=== PATIENT | female | born 2005 | race Hispanic/Latino ===

== ENCOUNTER 2023-09-12 14:20 | Inpatient (IN) | payer OTHER ==
[2023-09-15 20:02] VITALS: BMI 32.8
[2023-09-15] MEDS ORDERED: fentaNYL 50 mcg/mL 1 mL Vial SLOW IVP PRN (20:33)
[2023-09-15] MEDS ORDERED: Lidocaine 1% (PF) 30 ML VIAL SC PRN (20:33)
[2023-09-15] MEDS ORDERED: Carboprost 250 MCG/ML AMP IM PRN (20:33)
[2023-09-15] MEDS ORDERED: Tranexamic Acid 1,000 MG/10 ML VIAL IVP PRN (20:33)
[2023-09-15] MEDS ORDERED: Acetaminophen 500 MG TAB PO PRN (20:33)
[2023-09-15] MEDS ORDERED: Promethazine HCl 25 MG/ML VIAL IM PRN (20:33)
[2023-09-15] MEDS ORDERED: Ondansetron PF 4 MG/2 ML Vial IVP PRN (20:33)
[2023-09-15] MEDS ORDERED: Methylergonovine 0.2 MG/ML VIAL IM PRN (20:33)
[2023-09-15] MEDS ORDERED: hydrALAZINE 20 MG/ML VIAL SLOW IVP PRN (20:33)
[2023-09-15] MEDS ORDERED: Misoprostol 200 MCG TAB PR PRN (20:33)
[2023-09-15] MEDS ORDERED: Diphenoxylate HCl/Atropine Tablet PO PRN (20:33)
[2023-09-15] MEDS ORDERED: HYDROcodone/Acetaminophen 5/325 mg Tablet PO PRN (20:36)
[2023-09-15] MEDS ORDERED: Ibuprofen 800 MG TAB PO PRN (20:36)
[2023-09-15] MEDS ORDERED: Oxytocin 30 units/NS 500 ML 500 ML IV SCH ×3 (20:45)
[2023-09-15] MEDS: Misoprostol 100 MCG TAB PO SCH (21:08)
[2023-09-15 21:18] LABS: Hematocrit 31.2 % (34.9-44.5); Hemoglobin 10.4 g/dL (12.0-15.5); Mean Corpuscular HGB CONC 33.3 g/dL (32.0-36.0); Mean Corpuscular Hemoglobin 25.6 pg (27.0-33.0); Mean Corpuscular Volume 76.7 fl (81.6-98.3); Mean Platelet Volume 10.6 fl (7.4-10.4); Platelet Count 238 10x3/uL (150-450); RBC Distribution Width 14.3 % (11.5-14.5); Red Blood Cell (RBC) Count 4.07 10x6/uL (3.90-5.03); White Blood Cell (WBC) Count 7.7 10x3/uL (3.5-10.5)
[2023-09-15 23:05] LABS: HBSAg Index 0.17 S/CO (0-0.99); Hep B Surf Ag - L&D Non-Reactive S/CO (NonReactive); Syphilis Antibody Nonreactive (Nonreactive); Syphilis Antibody Index 0.04 S/CO (<1.00 Non-Reactive)
[2023-09-16] MEDS: Misoprostol 100 MCG TAB PO SCH ×4 (01:23→20:23)
[2023-09-16] MEDS ORDERED: Penicillin G Potassium 5 MILL.UNITS in Sodium Chloride 0.9% 100 ML IVPB SCH (02:00)
[2023-09-16] MEDS: Lactated Ringer's 1,000 ML IV SCH ×2 (02:27→20:21)
[2023-09-16] MEDS: Penicillin G 2.5 MILL.units 2.5 MILL.UNITS in Premix 1 BAG IVPB SCH ×3 (06:04→20:21)
[2023-09-16] MEDS ORDERED: ePHEDrine Sulfate 50 MG/10 ML VIAL SLOW IVP PRN (12:37)
[2023-09-16] MEDS ORDERED: Lactated Ringer's 500 ML IV PRN (12:37)
[2023-09-16] MEDS ORDERED: diphenhydrAMINE 50 MG/ML VIAL IVP PRN (12:37)
[2023-09-16] MEDS ORDERED: Naloxone HCl 0.4 mg/ml Vial IVP PRN ×2 (12:37)
[2023-09-16] MEDS ORDERED: Promethazine HCl 25 MG/ML VIAL IM PRN (12:37)
[2023-09-16] MEDS ORDERED: Moisturizing Cream (Eucerin) 113 GM JAR TOP PRN (12:37)
[2023-09-16] MEDS ORDERED: Acetaminophen 325 MG TAB PO PRN (12:37)
[2023-09-16] MEDS ORDERED: Ondansetron PF 4 MG/2 ML Vial IVP PRN ×2 (12:37→19:18)
[2023-09-16] MEDS ORDERED: Communication Order-Pharmacy FS SCH (12:45)
[2023-09-16] MEDS ORDERED: fentaNYL 2 mcg/Ropivacaine 0.2% Epidural 100 ML CADD EPIDURAL SCH (12:45)
[2023-09-16] MEDS ORDERED: Bupivacaine 0.25% HCL 30 ML VIAL ONE (14:27)
[2023-09-16] MEDS ORDERED: ePHEDrine Sulfate 50 MG/10 ML VIAL ONE (14:27)
[2023-09-16] MEDS ORDERED: Bisacodyl 10 MG SUPP PR PRN (19:18)
[2023-09-16] MEDS ORDERED: diphenhydrAMINE 25 MG CAP PO PRN (19:18)
[2023-09-16] MEDS ORDERED: Milk Of Magnesia 30 ML UDCUP PO PRN (19:18)
[2023-09-16] MEDS ORDERED: Lanolin Ointment 7 GM TUBE TOP PRN (19:18)
[2023-09-16] MEDS ORDERED: HYDROcodone/Acetaminophen 5/325 mg Tablet PO PRN (19:18)
[2023-09-16] MEDS ORDERED: hydrALAZINE 20 MG/ML VIAL SLOW IVP PRN (19:18)
[2023-09-16] MEDS ORDERED: Boostrix 0.5 ML (Tdap) VIAL (>/=7 yrs of age) IM ONE (19:18)
[2023-09-16] MEDS ORDERED: Preparation H Ointment 28 GM TUBE PR PRN (19:18)
[2023-09-16] MEDS ORDERED: Benzocaine-Menthol 82.5 ML CAN TOP PRN (19:18)
[2023-09-16] MEDS: Ibuprofen 800 MG TAB PO SCH (22:09)
[2023-09-16] MEDS: Docusate 100 MG CAP PO SCH (22:09)
[2023-09-17] MEDS: Ibuprofen 800 MG TAB PO SCH ×3 (05:48→21:21)
[2023-09-17] MEDS: Ferrous Sulfate 325 MG TAB PO SCH ×2 (07:34→17:29)
[2023-09-17] MEDS: Prenatal Vitamin 1 TAB PO SCH (09:11)
[2023-09-17] MEDS: Docusate 100 MG CAP PO SCH ×2 (09:11→21:21)
[2023-09-18] MEDS: Ibuprofen 800 MG TAB PO SCH ×2 (06:25→14:05)
[2023-09-18] MEDS: Ferrous Sulfate 325 MG TAB PO SCH (07:31)
[2023-09-18 08:44] VITALS: BP 100/60; TEMP 98.1
[2023-09-18] MEDS: Prenatal Vitamin 1 TAB PO SCH (09:17)
[2023-09-18] MEDS: Docusate 100 MG CAP PO SCH (09:17)
== END 2023-09-18 18:20 | disposition home or self-care (01) | DRG 807 ==
LOC: CSHLD 09-15 19:31 → CSHPP 09-16 20:00
PROVIDERS: ADMIT Family Medicine; ATTEND Family Medicine
PROC: 10E0XZZ Delivery of Products of Conception, External Approach (ICD-10-PCS; principal; 2023-09-16)
PROC: 10907ZC Drainage of Amniotic Fluid, Therapeutic from Products of Conception, Via Natural or Artificial Opening (ICD-10-PCS; 2023-09-16)
PROC: 3E0P7VZ Introduction of Hormone into Female Reproductive, Via Natural or Artificial Opening (ICD-10-PCS; 2023-09-16)
PROC: 0UQMXZZ Repair Vulva, External Approach (ICD-10-PCS; 2023-09-16)
PROC: 0HQ9XZZ Repair Perineum Skin, External Approach (ICD-10-PCS; 2023-09-16)
DX: O99.824 Streptococcus B carrier state complicating childbirth (principal); Z37.0 Single live birth; Z3A.40 40 weeks gestation of pregnancy; O70.0 First degree perineal laceration during delivery; O71.82 Other specified trauma to perineum and vulva
CPT/HCPCS: 36415; 51702; 85027; 86780; 86850; 86900; 86901; 87340; J2540; J2590; J3010; J3490; J7120; S0020